=== PATIENT | female | born 1980 | race Caucasian/White ===

== ENCOUNTER 2021-11-04 17:29 | Emergency (ER) | payer BC ==
[2021-11-04] MEDS ORDERED: Sodium Chloride 0.9% 1000 ML 1,000 ML IV STA (18:53)
[2021-11-04] MEDS ORDERED: Compazine 10 MG/2 ML IV ONE (18:57)
[2021-11-04] MEDS ORDERED: TORAdol 30 mg Injection IV ONE (18:57)
[2021-11-04] MEDS ORDERED: BENADRYL 50 MG/ML IV ONE (18:59)
[2021-11-04] MEDS ORDERED: BENADRYL 50 MG/ML ONE (19:01)
[2021-11-04] MEDS ORDERED: TORAdol 30 mg Injection ONE (19:01)
[2021-11-04] MEDS ORDERED: Compazine 10 MG/2 ML ONE (19:02)
[2021-11-04] MEDS ORDERED: Sodium Chloride 0.9% 1000 ML 1,000 ML ONE (19:02)
[2021-11-04 19:30] LABS: Absolute Neutrophil Ct (ANC) 6.47 (1.4-6.9); Basophil (Absolute #) 0.05 (0-0.4); Eosinophil % 2.1 % (0.00-5.0); Eosinophil (Absolute #) 0.21 (0-0.5); Hematocrit 39.8 % (35-47); Lymphocyte (Absolute #) 2.86 (1.0-4.6); Mean Cell Volume 87.5 fl (78-100); Mean Corpuscular Hemoglobin 28.6 pg (26-32); Mean Corpuscular Hgb Concent. 32.7 g/dl (32-36); Mean Platelet Volume 9.4 fl (7.5-11.0); Monocyte (Absolute #) 0.62 (0.0-1.3); Monocytes % 6.1 % (0.0-12.0); Neutrophil % 63.3 % (36.0-66.0); Platelet Count 366 K/mm3 (150-450); Red Blood Count 4.55 M/mm3 (4.1-5.4); Red Cell Distribution Width 12.5 % (11.5-14.0); White Blood Count 10.2 K/mm3 (4.0-10.5)
[2021-11-04 19:36] LABS: Appearance SLIGHTLY CLOUDY (CLEAR); Bilirubin NEGATIVE (NEGATIVE); Blood NEGATIVE Ery/ul (0-5); Epithelial Cells RARE /HPF (FEW); Glucose NEGATIVE (NEGATIVE); Hyaline Casts 0-2 /LPF (0-2); Ketones TRACE (NEGATIVE); Leukocyte Esterase NEGATIVE (NEGATIVE); Mucus MODERATE /HPF (NEGATIVE); Nitrite NEGATIVE (NEGATIVE); Protein,Urine Dip NEGATIVE (Negative); RBC 0-2 /HPF (0-2); Specific Gravity 1.024 (1.005-1.025); Urobilinogen 2 mg/dL (0-1)
[2021-11-04 19:48] LABS: ALBUMIN 4.8 g/dL (3.5-5.0); ALKALINE PHOSPHATASE 23 U/L (38-126); ANION GAP 15.8 MEQ/L (5-15); BLOOD UREA NITROGEN 18 mg/dL (7-17); CHLORIDE 105 mmol/L (98-107); Calcium 9.2 mg/dL (8.4-10.2); Carbon Dioxide 23 mmol/L (22-30); Creatinine 1 0.77 mg/dL (0.52-1.04); EST GLOMERULAR FILTRATION RATE > 60.0 ML/MIN; Glucose 82 mg/dL (74-106); Potassium 4.4 mmol/L (3.5-5.1); SGOT/AST 30 U/L (14-36); SGPT/ALT 28 U/L (0-35); SODIUM 140 mmol/L (137-145); Total Protein 7.5 g/dL (6.3-8.2)
--- NOTE | 2021-11-04 21:32 | ERPHSYRPT ---
- History of Present Illness Time Seen by Provider: 11/04/21 17:50 Source: patient Patient Subjective Stated Complaint: Pt c/o of migraine since yesterday with N&V and no relief from any meds Triage Nursing Assessment: Pt brought self to the ER, vitals wnl, rates pain as 7/10, can get a ride home if needed, N&V, skin n/w/d, pulses normal, no difficulty breathing, photophobia, trouble seeing out of right eye Physician History: Patient is a 41-year-old female presents to our ED with complaints of a migraine headache. Patient has a history of a migraine headache and states that her current headache started yesterday. Patient took Aleve at 3 AM yesterday. Patient then took Toradol and Zofran at 8:30 AM. Patient followed up at her primary provider's office at which time Imitrex was administered. Patient has had 3 doses of Imitrex over the past 24 hours. Patient's headache rated 7 out of 10. Headache described as a global ache. Patient admits to a visual disturbance that is typical of her migraine headaches. She is experiencing light sensitivity. She also has sound sensitivity. No trauma. No fever. No neck pain. No meningeal signs. Patient denies trauma. Symptoms are moderate in intensity. No significant improving factors. No associated numbness tingling or weakness. Patient voices no other complaints or concerns at this time. Timing/Duration: today Quality: aching Head Pain Location: frontal (Patient states headache is global but somewhat more intense in the frontal region.) Severity of Pain-Max: moderate Severity of Pain-Current: mild Recent Head Trauma: no recent headache/trauma, chronic headaches Modifying Factors: Improves With: exposure to light, noise Associated Symptoms: visual disturbance, No dizziness, No facial pain, No fever/chills, No light-headedness, No loss of consciousness, No nasal co ngestion, No neck pain, No sweating, No sinus infection, No stiff neck, No trouble walking Previous symptoms: same symptoms as today (Headache similar to today however the difference is that patient's headache usually resolves with Imitrex. Today's headache did not resolve with Imitrex) Allergies/Adverse Reactions: erythromycin base [Erythromycin Base] Allergy (Severe, Verified 11/04/21 17:53) Hives vancomycin Allergy (Severe, Verified 11/04/21 17:53) Hives Penicillins Allergy (Verified 11/04/21 17:53) UNKNOWN promethazine HCl [From Phenergan] Allergy (Verified 11/04/21 17:53) EXTREMEITES CONSTRICT. succinylcholine Adverse Reaction (Verified 11/04/21 17:53) Home Medications: Desvenlafaxine Succinate [Pristiq ER] 100 mg PO DAILY 11/04/21 [History] Lorazepam 1 mg [Ativan 1 MG] 1 mg PO HS 11/04/21 [History] Sumatriptan Succinate [Imitrex] 100 mg PO UD 11/04/21 [History] Topiramate [Topiramate ER] 50 mg PO DAILY 11/04/21 [History] estradioL [Divigel] 1 each TD UD 11/04/21 [History] Hx Tetanus, Diphtheria Vaccination/Date Given: Yes Hx Influenza Vaccination/Date Given: Yes () Hx Pneumococcal Vaccination/Date Given: No Travel Risk - International Travel Have you traveled outside of the country in past 3 weeks: No - Coronavirus Screening Are you exhibiting any of the following symptoms?: No Close contact with a COVID-19 positive Pt in past 14-21 Days: No - Vaccine Status Have you recieved a Covid-19 vaccination: Yes Builder Beam: Moderna - Vaccination Dates Date of 2cond Vaccination (if applicable): [id number] - Review of Systems Constitutional: No Symptoms, No Fever, No Chills Eyes: No Symptoms Ears, Nose, & Throat: No Symptoms Respiratory: No Symptoms, No Cough, No Dyspnea Cardiac: No Symptoms, No Chest Pain, No Edema, No Syncope Abdominal/Gastrointestinal: No Symptoms, No Abdominal Pain, No Nausea, No Vomiting, No Diarrhea Genitourinary Symptoms: No Symptoms, No Dysuria Musculoskeletal: No Symptoms, No Back Pain, No Neck Pain Skin: No Symptoms, No Rash Neurological: No Symptoms, No Dizziness, No Focal Weakness, No Sensory Changes Psychological: No Symptoms Endocrine: No Symptoms Hematologic/Lymphatic: No Symptoms Immunological/Allergic: No Symptoms All Other Systems: Reviewed and Negative - Past Medical History Pertinent Past Medical History: Yes Neurological History: Migraines ENT History: No Pertinent History Cardiac History: No Pertinent History Respiratory History: No Pertinent History Endocrine Medical History: No Pertinent History Musculoskeletal History: No Pertinent History GI Medical History: Other History: Other Psycho-Social History: No Pertinent History Female Reproductive Disorders: Endometriosis, Menstrual Problems, Other - Past Surgical History Past Surgical History: Yes Neuro Surgical History: No Pertinent History Cardiac: No Pertinent History Respiratory: No Pertinent History Gastrointestinal: Cholecystectomy Genitourinary: No Pertinent History Musculoskeletal: No Pertinent History Female Surgical History: Hysterectomy, Other Other Surgical History: cysts, breast augmentation - Social History Smoking Status: Never smoker How long have you smoked: 12 YEARS Exposure to second hand smoke: No Drug Use: none Patient Lives Alone: No - Female History Hx Now: No (hysterectomy) - Nursing Vital Signs Nursing Vital Signs: Initial Vital Signs Temperature 97.3 F 11/04/21 17:39 Pulse Rate 82 11/04/21 17:39 Blood Pressure 136/83 11/04/21 17:39 O2 Sat by Pulse Oximetry 100 11/04/21 17:39 Pain Scale Pain Intensity 3 - Physical Exam General Appearance: no apparent distress Eye Exam: PERRL/EOMI, eyes nml inspection, scleral icterus, other Ears, Nose, Throat Exam: normal ENT inspection, pharynx normal, moist mucous membranes Neck Exam: normal inspection, supple, full range of motion, No non-tender, No meningismus Respiratory Exam: normal breath sounds, lungs clear, airway intact, No respiratory distress Cardiovascular Exam: regular rate/rhythm, normal heart sounds, normal peripheral pulses Gastrointestinal/Abdominal Exam: soft, No tenderness, No distention, No guarding Back Exam: normal inspection, normal range of motion, No CVA tenderness Extremity Exam: normal inspection, normal range of motion, pelvis stable Mental Status Exam: alert, oriented x 3, cooperative, No agitated, No uncooperative accident report clerk Exam: normal hearing, normal speech, PERRL, No abnormal eye position, No facial droop Coordination/Gait Exam: normal finger to nose, normal gait, normal cerebellar function Motor/Sensory Exam: no motor deficit, no sensory deficit, No no pronator drift, No sensory deficit, No weak motor strength RUE, No weak motor strength LUE, No weak motor strength RLE, No weak motor strength LLE Skin Exam: normal color, warm, dry, No rash, No petechiae Lymphatic Exam: No adenopathy SpO2 Interpretation: normal SpO2: 97 O2 Delivery: Room Air - Course Nursing assessment & vital signs reviewed: Yes Ordered Tests: Active Orders 24 hr Category Date Time Status Medical Library Assistant STAT Care 11/04/21 18:55 Active IV Insertion STAT Care 11/04/21 18:53 Active Pulse Oximetry (ED) STAT Care 11/04/21 18:53 Active CBC W DIFF Stat Lab 11/04/21 18:55 Completed CMP Stat Lab 11/04/21 18:55 Completed UA W/RFX UR CULTURE Stat Lab 11/04/21 18:55 Completed Medication Summary Discontinued Medications Generic Name Dose Route Start Last Admin Trade Name Kaiden PRN Reason Stop Dose Admin Diphenhydramine HCl 25 mg 11/04/21 18:59 11/04/21 19:07 Diphenhydramine Hcl 50 Mg/Ml Vial IV 11/04/21 19:00 25 mg STAT ONE Administration Diphenhydramine HCl Confirm 11/04/21 19:01 Diphenhydramine Hcl 50 Mg/Ml Vial Administered 11/04/21 19:02 Dose 50 mg .ROUTE .STK-MED ONE Sodium Chloride 1,000 mls @ 999 mls/hr 11/04/21 18:53 11/04/21 20:16 Sodium Chloride 0.9% 1000 Ml IV 11/04/21 19:53 Infused .Q1H1M STA Infusion Sodium Chloride Confirm 11/04/21 19:02 Sodium Chloride 0.9% 1000 Ml Administered 11/04/21 19:03 Dose 1,000 mls @ ud .ROUTE .STK-MED ONE Ketorolac Tromethamine 30 mg 11/04/21 18:57 11/04/21 19:07 Ketorolac Tromethamine 30 Mg/Ml Inj IV 11/04/21 18:58 30 mg STAT ONE Administration Ketorolac Tromethamine Confirm 11/04/21 19:01 Ketorolac Tromethamine 30 Mg/Ml Inj Administered 11/04/21 19:02 Dose 30 mg .ROUTE .STK-MED ONE Prochlorperazine Edisylate 10 mg 11/04/21 18:57 11/04/21 19:08 Prochlorperazine Edisylate 10 Mg/2 Ml Vial IV 11/04/21 18:58 10 mg STAT ONE Administration Prochlorperazine Edisylate Confirm 11/04/21 19:02 Prochlorperazine Edisylate 10 Mg/2 Ml Vial Administered 11/04/21 19:03 Dose 10 mg .ROUTE .STK-MED ONE Lab/Rad Data: Laboratory Result Diagrams 11/04/21 18:55 11/04/21 18:55 Laboratory Results 11/04/21 11/04/21 11/04/21 Range/Units 18:55 18:55 18:55 WBC 10.2 (4.0-10.5) K/mm3 RBC 4.55 (4.1-5.4) M/mm3 Hgb 13.0 (12.0-16.0) gm/dl Hct 39.8 (35-47) % MCV 87.5 (78-100) fl MCH 28.6 (26-32) pg MCHC 32.7 (32-36) g/dl RDW 12.5 (11.5-14.0) % Plt Count 366 (150-450) K/mm3 MPV 9.4 (7.5-11.0) fl Gran % 63.3 (36.0-66.0) % Eos # (Auto) 0.21 (0-0.5) Absolute Lymphs (auto) 2.86 (1.0-4.6) Absolute Monos (auto) 0.62 (0.0-1.3) Lymphocytes % 28.0 (24.0-44.0) % Monocytes % 6.1 (0.0-12.0) % Eosinophils % 2.1 (0.00-5.0) % Basophils % 0.5 (0.0-0.4) % Absolute Granulocytes 6.47 (1.4-6.9) Basophils # 0.05 (0-0.4) Sodium 140 (137-145) mmol/L Potassium 4.4 (3.5-5.1) mmol/L Chloride 105 (98-107) mmol/L Carbon Dioxide 23 (22-30) mmol/L Anion Gap 15.8 H (5-15) MEQ/L BUN 18 H (7-17) mg/dL Creatinine 0.77 (0.52-1.04) mg/dL Estimated GFR > 60.0 ML/MIN Glucose 82 (74-106) mg/dL Calcium 9.2 (8.4-10.2) mg/dL Total Bilirubin 0.60 (0.2-1.3) mg/dL AST 30 (14-36) U/L ALT 28 (0-35) U/L Alkaline Phosphatase 23 L (38-126) U/L Serum Total Protein 7.5 (6.3-8.2) g/dL Albumin 4.8 (3.5-5.0) g/dL Urine Color YELLOW (YELLOW) Urine Appearance SLIGHTLY CLOUDY (CLEAR) Urine pH 5.0 (5-6) Ur Specific Lang[place] 1.024 (1.005-1.025) Urine Protein NEGATIVE (Negative) Urine Ketones TRACE (NEGATIVE) Urine Blood NEGATIVE (0-5) Bobby/ul Urine Nitrite NEGATIVE (NEGATIVE) Urine Bilirubin NEGATIVE (NEGATIVE) Urine Urobilinogen 2 (0-1) mg/dL Ur Leukocyte Esterase NEGATIVE (NEGATIVE) Urine WBC (Auto) 3-5 (0-5) /HPF Urine RBC (Auto) 0-2 (0-2) /HPF U Hyaline Cast (Auto) 0-2 (0-2) /LPF U Epithel Cells (Auto) RARE (FEW) /HPF Urine Mucus (Auto) MODERATE (NEGATIVE) /HPF Urine Culture Reflexed NO (NO) Urine Glucose NEGATIVE (NEGATIVE) mg/dL - Progress Progress: improved Air Movement: good Progress Note: Patient reassessed. Headache essentially resolved. Because patient's headache was refractory to traditional treatment we advised a CT head. Patient declined the CAT scan. Risks and benefits of CAT scan were discussed. Patient states that if headache recurs she would consider a CT but requested discharge and refused a CT. No indication for further work-up at this time otherwise. Will discharge home per patient's request. She voices no other complaints or concerns. Laboratory work-up essentially nonremarkable. UA negative for UTI. Portions of this note were created with voice recognition technology. There may be grammatical, spelling, punctuation or sound alike errors 11/04/21 21:43 Blood Culture(s) Obtained: No Antibiotics given: No Counseled pt/family regarding: lab results, diagnosis, need for follow-up - Departure Departure Disposition: Home Clinical Impression: Migraine Condition: Stable Critical Care Time: No Referrals: LASHELL FINNEY NP [Primary Care Provider] - Follow up/PCP as directed Additional Instructions: Discharge/Care Plan ALYSSANIRAJ PALM was seen on 11/04/21 in the Emergency Room. The patient was counseled regarding Diagnosis,Lab results, Imaging studies, need for follow up and when to return to the Emergency Room. Prescriptions given: Discharge Note I have spoken with the patient and/or caregivers. I have explained the patient's condition, diagnosis and treatment plan based on the information available to me at this time. I have answered the patient's and/or caregiver's questions and addressed any concerns. The patient and/or caregivers have as good understanding of the patient's diagnosis, condition and treatment plan as can be expected at this point. The vital signs have been stable. The patient's condition is stable and appropriate for discharge from the emergency department. The patient will pursue further outpatient evaluation with the primary care physician or other designated or consulting physician as outlined in the d ischarge instructions. The patient and/or caregivers are agreeable to this plan of care and follow-up instructions have been explained in detail. The patient and/or caregivers have received these instruction. The patient/and or caregivers are aware that any significant change in condition or worsening of symptoms should prompt an immediate return to this or the closest emergency department or call 911.
[2021-11-04 21:39] VITALS: BP 107/65; PULSE 70
[2021-11-04 21:40] VITALS: O2SAT 97
== END 2021-11-04 21:46 | disposition home or self-care (01) ==
LOC: ED 17:29
DX: G43.909 Migraine, unspecified, not intractable, without status migrainosus (principal); H53.9 Unspecified visual disturbance; Z79.899 Other long term (current) drug therapy
CPT/HCPCS: 36000; 36415; 80053; 81001; 85025; 94760; 96360; 96374; 96375; 99284; J1200; J1885

== ENCOUNTER 2024-11-03 07:43 | Day surgery (SDC) | payer BC ==
[2024-11-03] MEDS ORDERED: BUPIVACAINE 0.5% VIAL IJ ONE (07:44)
[2024-11-03] MEDS ORDERED: LIDOCAINE HCL 1% AMPUL 5 ML IJ ONE (07:44)
[2024-11-03] MEDS ORDERED: Versed 2 MG/2 ML Injection ONE (08:52)
[2024-11-03] MEDS ORDERED: propofoL IV ONE (09:54)
--- NOTE | 2024-11-03 10:43 | XRAY ---
Indication: Ganglion impar nerve block.. Intraoperative fluoroscopy provided for 11 seconds. 2 digital spot image submitted for interpretation demonstrates posterior needle tip projecting just anterior to sacrococcygeal junction. Small amount of contrast injected for needle tip placement. Correlate with intraoperative findings/report.
--- NOTE | 2024-11-03 13:13 | XRAY ---
11 seconds of fluoroscopy was used in surgery for a ganglion impar nerve block.
== END 2024-11-03 10:24 | disposition home or self-care (01) ==
LOC: SDC-PAIN 07:43
PROVIDERS: ATTEND Psychiatry & Neurology Pain Medicine
DX: M53.3 Sacrococcygeal disorders, not elsewhere classified (principal)
CPT/HCPCS: 64999; 72220; 77002; 77003; J2250; J2704; Q9966

== ENCOUNTER 2024-12-07 09:51 | Day surgery (SDC) | payer BC ==
[2024-12-07] MEDS ORDERED: LIDOCAINE HCL 1% AMPUL 5 ML IJ ONE (09:52)
[2024-12-07] MEDS ORDERED: BUPIVACAINE 0.5% VIAL IJ ONE (09:52)
[2024-12-07] MEDS ORDERED: Versed 2 MG/2 ML Injection ONE (11:32)
[2024-12-07] MEDS ORDERED: propofoL IV ONE (11:53)
[2024-12-07] MEDS ORDERED: Xylocaine-Mpf 2% 5 Ml Vial ONE (11:57)
[2024-12-07] MEDS ORDERED: Zofran 4 MG/2 ML VIAL ONE (12:12)
--- NOTE | 2024-12-07 12:54 | XRAY ---
Indication: Ganglion impar nerve block. Intraoperative fluoroscopy provided for 2 seconds. 2 digital spot images submitted for interpretation demonstrates posterior needle tip projecting just anterior to coccyx. Small amount of contrast injected for needle tip placement. Correlate with intraoperative findings/report.
--- NOTE | 2024-12-07 12:55 | XRAY ---
22 seconds of fluoroscopy was used in surgery for a ganglion impar nerve block.
== END 2024-12-07 12:38 | disposition home or self-care (01) ==
LOC: SDC-PAIN 09:51
PROVIDERS: ATTEND Psychiatry & Neurology Pain Medicine
DX: M53.3 Sacrococcygeal disorders, not elsewhere classified (principal)
CPT/HCPCS: 64530; 72220; 77002; 77003; J2250; J2405; J2704